=== PATIENT | female | born 1935 | race Caucasian/White ===

== ENCOUNTER 2017-12-12 05:05 | Day surgery (SDC) | payer OTHER ==
[~2017-12-12 05:05] MED LIST: AVAPRO300 MG PO; HYDROCHLOROTHIA25 MG PO; HYDROLAZINE PO; JANUMET XR 50-1 EACH PO; LIPITOR20 MG PO
[2017-12-12] MEDS ORDERED: ULTRACET PO (10:06)
[2017-12-12] MEDS ORDERED: MACROBID 100 M100 MG PO (10:06)
== END 2017-12-12 14:35 | disposition home or self-care (01) ==
LOC: CIR.AMB 05:05
DX: N81.3 Complete uterovaginal prolapse (principal)